=== PATIENT | male | born 1955 | race Two or more races ===

== ENCOUNTER 2022-10-26 13:03 | Outpatient (AMB) | payer BC, SELFPAY ==
--- NOTE | 2022-10-26 13:15 | MHC.OFFVIS ---
Intake Vital Signs 10/26/22 13:16 Height 5 ft 10.5 in Weight 253 lb 8.505 oz BMI 35.9 BP 122/68 Blood Pressure Location Lt brachial Position Sitting Pulse 75 Pulse Source Pulse Oximeter Temp 97.7 F Temp Source Skin Pulse Oximetry (%) 98 Intake Visit Reasons: Psoriasis with arthropathy Intake Note: New pt presents today for psoriasis arthropathy. C/o pain in multiple joints. 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 He was a previous patient of Dr. Willis. He has been on Humira it sounds like for about 10 years. This has been working fine for him. He initially developed sausage digits and psoriasis in the scalp in around 1997. Eventually it was determined he had psoriatic arthritis. Indomethacin and corticosteroid injections did not help much so he was put on methotrexate. The methotrexate caused nausea. He then was switched to Arava without much improvement. Eventually Remicade was trialed and was quite helpful. For logistical reasons he was switched to Enbrel. He took that for about 5 years but it started to become ineffective and he has been on the Humira now for about 10 years. He only rarely uses some Aleve. There have been no apparent side effects. He does not recall any episodes of colitis, uveitis, or skin rashes beyond the psoriasis. The Humira has done better at controlling his psoriasis than the Enbrel did but he still has some plaques over the knees and elbows. These are not really bothersome for him he does have some clobetasol to use. 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 [facility] Medical History (Updated 10/26/22 @ 13:47 by Manny Thompson MD) Essential hypertension Psoriasis with arthropathy Surgical History No history of previous surgery Family History (Updated 10/23/22 @ 10:37 by LAURIE Zaldivar) Mother Arthritis Father Malignant tumor of pharynx, Onset Age: 68 Ruptured abdominal aortic aneurysm Other Family history of aortic aneurysm Social History (Updated 10/26/22 @ 13:20 by LAURIE Zaldivar) Household Members: Spouse Alcohol intake: current Alcohol intake frequency: a few times a week Patient Tobacco Use Status: Former Tobacco user Quit Date: 1986 Current occupational status: retired Review of Systems Const Details: 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 He has been working on weight reduction recently. Negative for appetite change, fever, chills, malaise and fatigue Eyes Details: Negative for vision change, dry eyes,headaches and dizziness ENT Details: Negative for hearing change, tinnitus, oral ulcer, nose bleeds and oral dryness. Card Details: Negative chest pain, edema and syncope Resp Details: Negative for SOB, cough and wheezing GI Details: Negative indigestion/heartburn, nausea, abdominal pain, bowel changes, diarrhea, constipation and bloody stool. Details: Negative for dysuria, hematuria, nocturia, decreased force/flow and genital discharge Skin/Breast Details: Negative for itching, rash, hives, Raynaud's symptoms, sun sensitivity, and skin cancer Neuro Details: Negative for epilepsy, palsy, stroke, changes in speech, tingling and weakness Psych Details: Negative for anxiety, depression and stress Endo Details: Negative for polyuria and polydypsia Akil/Lymph Details: Negative for excessive bruising or bleeding. Physical Exam Vital Signs: Last Vital Signs Temp 97.7 F 10/26/22 13:16 Pulse 75 10/26/22 13:16 BP 122/68 10/26/22 13:16 Pulse Ox 98 10/26/22 13:16 BMI result Body Mass Index 35.9 APPEARANCE: Patient in no acute distress EYES no redness, pupils equal and reactive to light, eyelids normal EARS: External ear normal, canal clear and tympanic membrane normal. NOSE/SINUS: Airflow through both nares, no nasal discharge, no bleeding THROAT: Oral mucosa moist, no ulcerations NECK: No thyromegaly or masses, no adenopathy, trachea midline. HEART: Regulrar rhythm, S1-S2 heard, no murmurs, rubs or gallops. LUNG: Clear to percussion and auscultation ABD: Normal bowel sounds, no organomegaly, masses or tenderness. EXTREMITIES: No edema, no calf tenderness, normal peripheral pulses. NEURO: Oriented and alert x3. No focal weakness. Reflexes symmetric. Gait normal. SKIN: There are shallow red plaques with slight scale over the olecranon regions and the prepatellar regions. He has a few scaly lesions on the dorsum of the hand. There are no nail changes of note. He does not have any scalp lesions. JOINT EXAM:.?? Cervical Spine:.? Full range of motion without pain; no tenderness. Thoracic Spine:.? No scoliosis.? No tenderness on palpation. Lumbar Spine:.? Alignment normal.? Full range of motion with mild discomfort at full flexion. No tenderness. Chest Wall:.? No tenderness, swelling, increased warmth or erythema. Hands:? Normal pain-free range of motion with some slight thickening in a few of the PIP is but range of motion seems intact. There is no flexor tendon triggering, thenar atrophy, tenderness, soft tissue swelling, sensory loss, increased warmth or erythema. Wrists: Right: There is slight discomfort with flexion extension at 45 degrees with some minimal tenderness but no swelling. Left: Flexion and extension are intact to 60 degrees with no pain. There is some slight tenderness but no swelling. Elbows:. Normal pain-free range of motion without tenderness, swelling, increased warmth or erythema. Shoulders:.?? Full range of motion without pain. No tenderness, weakness, swelling, increased warmth or erythema. Hips:.? Full range of motion without pain. Hip bursa:.? No tenderness. Knees:.?? Normal pain-free range of motion with mild patellofemoral crepitus but no effusion, tenderness, swelling, increased warmth or erythema.? Ankles:.? Normal pain-free range of motion without tenderness, swelling, increased warmth or erythema. Feet:.? Normal pain-free range of motion without tenderness, swelling, increased warmth or erythema. Tender points:.? No tenderness to digital palpation at the occiput, trapezius, second rib, lateral epicondyle, knees, greater trochanter and gluteal area bilaterally. ? Assessment & Plan Assessment & Plan (1) Psoriasis: Code(s): L40.9 - Psoriasis, unspecified (2) Long-term use of immunosuppressant medication: Code(s): Z79.60 - [facility] (current) use of unspecified immunomodulators and immunosuppressants (3) Psoriasis with arthropathy: Code(s): L40.50 - Arthropathic psoriasis, unspecified Orders: Orders Comprehensive Met. 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) use of unspecified immunomodulators and immunosuppressants Complete Blood Count Auto Diff Today L40.50 - Arthropathic psoriasis, unspecified, Z79.60 - [facility] (current) use of unspecified immunomodulators and immunosuppressants Erythrocyte Sedimentation Rate Today L40.50 - Arthropathic psoriasis, unspecified, Z79.60 - [facility] (current) use of unspecified immunomodulators and immunosuppressants T Spot TB Today L40.50 - Arthropathic psoriasis, unspecified, Z79.60 - [facility] (current) use of unspecified immunomodulators and immunosuppressants Coding Level of Care Code Est Pt Level 3 (79937) Diagnoses Psoriasis L40.9 Long-term use of immunosuppressant medication Z79.60 Psoriasis with arthropathy L40.50
[2022-10-26 13:16] VITALS: BP 122/68; PULSE 75; TEMP 36.5; O2SAT 98; BMI 35.9
== END 2022-10-26 13:56 | disposition home or self-care (01) ==
LOC: HO.RHE 13:03
PROVIDERS: PCP Family Medicine; Visit Provider Internal Medicine Rheumatology
DX: L40.9 Psoriasis, unspecified (principal); Z79.60 Long term (current) use of unspecified immunomodulators and immunosuppressants; L40.50 Arthropathic psoriasis, unspecified
CPT/HCPCS: 99213

== ENCOUNTER 2022-10-26 13:03 | Outpatient (REF) | payer BC, SELFPAY ==
[2022-10-29 03:14] LABS: TS Negative Control Passed; TS Panel A 0; TS Panel B 0; TS Positive Control Passed; TSpotTB Negative (Negative)
== END 2022-10-26 13:04 | disposition home or self-care (01) ==
LOC: HO.LAB 13:03
PROVIDERS: PCP Family Medicine; Visit Provider Internal Medicine Rheumatology
DX: L40.50 Arthropathic psoriasis, unspecified (principal); Z79.60 Long term (current) use of unspecified immunomodulators and immunosuppressants; Z79.899 Other long term (current) drug therapy
CPT/HCPCS: 36415; 80053; 85025; 85652; 86140; 86481

== ENCOUNTER 2023-03-30 10:16 | Outpatient (AMB) | payer MEDICARE, BC, SELFPAY ==
--- NOTE | 2023-03-30 10:20 | MHC.OFFVIS ---
Intake Vital Signs 03/30/23 10:23 Height 5 ft 10.5 in Weight 255 lb 1.197 oz BMI 36.1 BP 122/82 Blood Pressure Location Lt brachial Position Sitting Pulse 83 Pulse Source Pulse Oximeter Temp 97.4 F Temp Source Skin Pulse Oximetry (%) 94 Oxygen Delivery Method Room Air Intake Visit Reasons: Psoriasis Intake Note: Patient presents today to follow up on Psoriasis. 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 He remains on Humira 40 mg every 2 weeks. The joints seem stable with minimal if any discomfort. He takes a rare naproxen if needed for pain. However there has been more apparent psoriasis over the dorsum of his hands around the MCP regions, both elbows, both knees, and in the scalp. This is in spite of his regularly using clobetasol on his skin lesions. Review of his medication history indicates that he was on methotrexate and then Arava about 20 years ago. The methotrexate caused too much nausea and had to be switched to Arava. The Arava actually did not result in much improvement in the psoriasis or the psoriatic arthritis. He was put on Remicade but then because he could not tolerate the methotrexate he was switched to Enbrel. He did fairly well with the Enbrel for about 5 years although the skin disease was often relatively active. He has been on Humira since 2013. Again there was good control of joint symptoms but in the last 6 months or so he has had more skin manifestations of psoriasis. [facility] Medical History (Updated 03/29/23 @ 21:03 by Manny Thompson MD) Essential hypertension Psoriasis with arthropathy Surgical History No history of previous surgery Family History Mother Arthritis Father Malignant tumor of pharynx, Onset Age: 68 Ruptured abdominal aortic aneurysm Other Family history of aortic aneurysm Social History Household Members: Spouse Alcohol intake: current Alcohol intake frequency: a few times a week Patient Tobacco Use Status: Former Tobacco user Quit Date: 1986 Current occupational status: retired Review of Systems Const Details: Negative for appetite change, weight change, fever, chills, malaise and fatigue Eyes Details: Negative for vision change, dry eyes,headaches and dizziness ENT Details: Negative for hearing change, tinnitus, oral ulcer, nose bleeds and oral dryness. Card Details: Negative chest pain, edema and syncope Resp Details: Negative for SOB, cough and wheezing GI Details: Negative indigestion/heartburn, nausea, abdominal pain, bowel changes, diarrhea, constipation and bloody stool. Details: Negative for dysuria, hematuria, nocturia, decreased force/flow and genital discharge Endo Details: Negative for polyuria and polydypsia Akil/Lymph Details: Negative for excessive bruising or bleeding. Physical Exam Vital Signs: Last Vital Signs Temp 97.4 F 03/30/23 10:23 Pulse 83 03/30/23 10:23 BP 122/82 03/30/23 10:23 Pulse Ox 94 03/30/23 10:23 Oxygen Delivery Method Room Air 03/30/23 10:23 BMI result Body Mass Index 36.1 APPEARANCE: Patient in no acute distress EYES no redness, pupils equal and reactive to light, eyelids normal EARS: External ear normal, canal clear and tympanic membrane normal. There are red and scaly patches behind both ears. This is consistent with psoriasis. NOSE/SINUS: Airflow through both nares, no nasal discharge, no bleeding THROAT: Oral mucosa moist, no ulcerations NECK: No thyromegaly or masses, no adenopathy, trachea midline. HEART: Regulrar rhythm, S1-S2 heard, no murmurs, rubs or gallops. LUNG: Clear to percussion and auscultation ABD: Normal bowel sounds, no organomegaly, masses or tenderness. EXTREMITIES: No edema, no calf tenderness, normal peripheral pulses. NEURO: Oriented and alert x3. No focal weakness. Reflexes symmetric. Gait normal. SKIN: There are scaly red plaques with slight scale over the MCP joints, both olecranon regions, in the scalp, and both of the prepatellar regions. There are no nail changes of note. He does not have any scalp lesions. JOINT EXAM:.?? Cervical Spine:.? Full range of motion without pain; no tenderness. Thoracic Spine:.? No scoliosis.? No tenderness on palpation. Lumbar Spine:.? Alignment normal.? Full range of motion with mild discomfort at full flexion. No tenderness. Chest Wall:.? No tenderness, swelling, increased warmth or erythema. Hands:? Normal pain-free range of motion with some slight thickening in a few of the PIP is but range of motion seems intact. There is no flexor tendon triggering, thenar atrophy, tenderness, soft tissue swelling, sensory loss, increased warmth or erythema. Wrists: Right: There is slight discomfort with flexion extension at 45 degrees with some minimal tenderness but no swelling. Left: Flexion and extension are intact to 60 degrees with no pain. There is some slight tenderness but no swelling. Elbows:. Normal pain-free range of motion without tenderness, swelling, increased warmth or erythema. Shoulders:.?? Full range of motion without pain. No tenderness, weakness, swelling, increased warmth or erythema. Hips:.? Full range of motion without pain. Hip bursa:.? No tenderness. Knees:?? Normal pain-free range of motion with mild patellofemoral crepitus but no effusion, tenderness, swelling, increased warmth or erythema.? Ankles:? Normal pain-free range of motion without tenderness, swelling, increased warmth or erythema. Feet:? Normal pain-free range of motion without tenderness, swelling, increased warmth or erythema. Tender points:? No tenderness to digital palpation at the occiput, trapezius, second rib, lateral epicondyle, knees, greater trochanter and gluteal area bilaterally. 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 He then was switched to Arava without much improvement. Eventually Remicade was trialed and was quite helpful. For logistical reasons he was switched to Enbrel. He took that for about 5 years but it started to become ineffective and he has been on the Humira now since 2013. Code(s): L40.50 - Arthropathic psoriasis, unspecified Plan The psoriatic arthritis seems to be well controlled with current regimen. However he seems to have more extensive psoriatic skin disease than previously. Reviewing with him his history, there has always been a problem with getting the psoriasis to subside with just the TNF inhibitors(Enbrel and Humira). He has also been intolerant or had unsuccessful trials with methotrexate and Arava in the past. I think we should move on to a different agent, Stelara. I reviewed with him the potential side effects of that which mostly include immunosuppression. I gave him some written information on that medication to review. We will pursue with his insurance company coverage issues having a do with Stelara. 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 We will schedule a return visit for about 2 months, hopefully by then he will receive a couple of the still our injections. In the meantime he can continue as needed use of the clobetasol cream as well as the naproxen. Review of his old records, his physical exam and discussion of the new treatment options took 32 minutes today. Medications: Changed From clobetasol 0.05% topical BID To clobetasol 0.05% apply to affected areas 2 times a day 30 grams 6RF Coding Level of Care Code Est Pt Level 4 (94486) Diagnoses Long-term use of immunosuppressant medication Z79.60 Psoriasis L40.9 Psoriasis with arthropathy L40.50
[2023-03-30 10:23] VITALS: BP 122/82; PULSE 83; TEMP 36.3; O2SAT 94; BMI 36.1
== END 2023-03-30 10:48 | disposition home or self-care (01) ==
PROVIDERS: PCP Family Medicine; Visit Provider Internal Medicine Rheumatology
DX: Z79.60 Long term (current) use of unspecified immunomodulators and immunosuppressants (principal); L40.9 Psoriasis, unspecified; L40.50 Arthropathic psoriasis, unspecified
CPT/HCPCS: 99214

== ENCOUNTER → 2023-03-30 10:16 | Outpatient (BNVA) | payer BC, SELFPAY | PROVIDERS: PCP Family Medicine; Visit Provider Internal Medicine Rheumatology ==

== ENCOUNTER 2023-06-28 09:34 | Outpatient (AMB) | payer MEDICARE, BC, SELFPAY ==
--- NOTE | 2023-06-28 09:45 | MHC.OFFVIS ---
Intake Vital Signs 06/28/23 09:49 Height 5 ft 10 in Weight 242 lb 1.081 oz BMI 34.7 BP 128/80 Blood Pressure Location Rt brachial Position Sitting Pulse 99 Pulse Source Pulse Oximeter Temp 98.2 F Temp Source Skin Pulse Oximetry (%) 96 Oxygen Delivery Method Room Air Intake Visit Reasons: psa with md Intake Note: Patient last seen by Dr Thompson on 03/30/23 presents today for follow up. Reports new colitis dx. 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 HPI HPI Comments History of Present Illness Details 67-year-old male with psoriasis and psoriatic arthritis returns for follow-up. Last visit Humira was discontinued and patient was started on Stelara. He received the 1st 2 loading doses. Second dose was May 24. He stated that he started having some GI discomfort and constipation May 23. He was on a cruise last month. May he had an episode of bloody diarrhea. He continues to have some GI discomfort with diarrhea and constipation. Has not had another bout of bloody stools. He is unaware of any family history of inflammatory bowel disease. He received IV fluids. 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 He does not have an appointment yet. Stated that since the IV was placed while on the cruise he noticed some swelling of his left arm this has been going on for about a week. It is minimally painful. He denies any fevers or weight loss. He feels some chest heaviness. States that the psoriasis is significantly better. Most recent history by Dr. Thompson 03/2023: The patient returns today for evaluation of his psoriatic arthritis and psoriasis. He remains on Humira 40 mg every 2 weeks. The joints seem stable with minimal if any discomfort. He takes a rare naproxen if needed for pain. However there has been more apparent psoriasis over the dorsum of his hands around the MCP regions, both elbows, both knees, and in the scalp. This is in spite of his regularly using clobetasol on his skin lesions. Review of his medication history indicates that he was on methotrexate and then Arava about 20 years ago. The methotrexate caused too much nausea and had to be switched to Arava. The Arava actually did not result in much improvement in the psoriasis or the psoriatic arthritis. He was put on Remicade but then because he could not tolerate the methotrexate he was switched to Enbrel. He did fairly well with the Enbrel for about 5 years although the skin disease was often relatively active. He has been on Humira since 2013. Again there was good control of joint symptoms but in the last 6 months or so he has had more skin manifestations of psoriasis. [facility] Medical History Essential hypertension Psoriasis with arthropathy Surgical History No history of previous surgery Family History Mother Arthritis Father Malignant tumor of pharynx, Onset Age: 68 Ruptured abdominal aortic aneurysm Other Family history of aortic aneurysm Social History Household Members: Spouse Alcohol intake: current Alcohol intake frequency: a few times a week Patient Tobacco Use Status: Former Tobacco user Quit Date: 1986 Current occupational status: retired Review of Systems Const Denies fever(s) and Denies weight loss GI Reports abdominal pain, Reports hematochezia, Reports change in bowel habits, Reports diarrhea, Denies vomiting and Denies hematemesis Musc Reports arthralgias and Reports joint swelling Skin/Breast Details: Psoriasis improved Physical Exam Vital Signs: Last Vital Signs Temp 98.2 F 06/28/23 09:49 Pulse 99 06/28/23 09:49 BP 128/80 06/28/23 09:49 Pulse Ox 96 06/28/23 09:49 Oxygen Delivery Method Room Air 06/28/23 09:49 BMI result Body Mass Index 34.7 Const General: cooperative, healthy appearing and comfortable Nutritional Appearance: obese Orientation/consciousness: patient oriented x3 Limitations: no limitations HEENT Head: Yes normocephalic and Yes atraumatic Mouth: moist mucous membranes Resp Effort & Inspection: normal respiratory effort and able to speak in complete sentences Cardio Rate: tachycardic Rhythm: regular rhythm GI Other: Mild nonspecific right upper quadrant tenderness Skin Other: Old psoriasis patches, healing up. No new psoriasis lesions Neuro General: patient oriented x3 Extrem Other: No active synovitis Swelling of medial aspect of the left forearm. Assessment & Plan Assessment & Plan (1) Psoriasis with arthropathy: Comment: DX around 1999: methotrexate caused nausea. He then was switched to Arava without much improvement. Eventually Remicade was trialed and was quite helpful. For logistical reasons he was switched to Enbrel. He took that for about 5 years but it started to become ineffective and he has been on the Humira now since 2013. Switched to Stelara 04/2023 Code(s): L40.50 - Arthropathic psoriasis, unspecified Plan: This is a 67-year-old male who presents for evaluation of psoriasis and psoriatic arthritis. This is his 1st visit with me he used to follow-up with Dr. Thompson. Patient received the 1st 2 loading doses of Stelara. Per patient, it has helped his skin significantly. Over the last 1-2 weeks patient has been having abdominal discomfort, intermittent constipation and 1 episode of bloody diarrhea. Of note patient was on a cruise in the [facility], ?infectious versus inflammatory colitis. Needs GI evaluation. Patient's next dose of Stelara is not until August. Will continue to monitor patient's symptoms. For now hold the Stelara dose. Patient will be going to the ER to evaluate his left upper extremity swelling. A CT scan of the abdomen can be considered (2) Psoriasis: Code(s): L40.9 - Psoriasis, unspecified Plan: As mentioned above, improving with Stelara (3) Pain and swelling of left forearm: Code(s): M79.632 - Pain in left forearm; M79.89 - Other specified soft tissue disorders Plan: When patient had the episode of diarrhea while on a cruise on , an IV was inserted in the left forearm. Few days after patient has been having swelling of left upper extremity. 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
[2023-06-28 09:49] VITALS: BP 128/80; PULSE 99; TEMP 36.8; O2SAT 96; BMI 34.7
== END 2023-06-28 10:22 | disposition home or self-care (01) ==
PROVIDERS: PCP Family Medicine; Visit Provider Student in an Organized Health Care Education/Training Program
DX: L40.50 Arthropathic psoriasis, unspecified (principal); L40.9 Psoriasis, unspecified; M79.632 Pain in left forearm; M79.89 Other specified soft tissue disorders
CPT/HCPCS: 99214

== ENCOUNTER → 2023-06-28 09:34 | Outpatient (BNVA) | payer BC, SELFPAY | PROVIDERS: PCP Family Medicine; Visit Provider Student in an Organized Health Care Education/Training Program | DX: L40.50 Arthropathic psoriasis, unspecified (principal); L40.9 Psoriasis, unspecified; M79.632 Pain in left forearm; M79.89 Other specified soft tissue disorders; Z79.60 Long term (current) use of unspecified immunomodulators and immunosuppressants | CPT/HCPCS: 99212 ==